=== PATIENT | male | born 1990 | race Caucasian/White ===

== ENCOUNTER 2020-09-26 16:56 | Emergency (ER) | payer BC ==
[~2020-09-26] VITALS: Ht 185.4 cm; Wt 95.3 kg
[~2020-09-26 16:56] MED LIST: NAPROSYN500 MG PO; ULTRAM50 MG PO
[2020-09-26] MEDS ORDERED: IBUPROFEN600 MG PO (21:28)
[2020-09-26] MEDS ORDERED: METHOCARBAMOL500 M1 PO (21:28)
== END 2020-09-26 21:30 | disposition home or self-care (01) ==
LOC: ED 16:56
DX: R07.89 Other chest pain (principal)